=== PATIENT | female | born 1945 | race Caucasian/White ===

== ENCOUNTER → 2017-03-31 | Outpatient (CLI) | payer BC ==
[~2017-03-31] MED LIST: AMLODIPINE10 MG PO; ASPIRIN 81M81 MG/TA2 PO; ATIVAN0.5 MG PO; CALCIUM; CARDI-OMEGA1000 MG PO; DESYREL 50MG50 MG PO; KLOR-CON 1010 MEQ; LEXAPRO 10MG10 MG PO; LIPITOR40 MG PO; METAMUCIL0.52 GM PO; MULTIPLE VITAMI1 CAP PO; NATURE'S BLE1000 MCG PO; NORVASC2.5 MG PO; PRINIVIL10 MG PO; PRINZIDE 12.5 M1 TA1 PO; STOOL SOFTENER100 M2 PO; SYNTHROID0.05 MG/TA PO; TYLENOL EXTRA500 M1 PO; ULTRAM 50MG TAB50 MG PO
== END ==
LOC: MC.RAD 16:36
DX: Z12.31 Encounter for screening mammogram for malignant neoplasm of breast (principal)

== ENCOUNTER → 2018-04-14 | Outpatient (CLI) | payer MEDICARE, OTHER | LOC: MC.RAD 10:29 | DX: Z12.31 Encounter for screening mammogram for malignant neoplasm of breast (principal) ==

== ENCOUNTER → 2019-04-18 | Outpatient (CLI) | payer MEDICARE, OTHER | LOC: MC.RAD 13:08 | DX: Z12.31 Encounter for screening mammogram for malignant neoplasm of breast (principal) ==

== ENCOUNTER → 2020-04-19 | Outpatient (CLI) | payer MEDICARE | LOC: MC.RAD 10:27 | DX: Z12.31 Encounter for screening mammogram for malignant neoplasm of breast (principal) ==

== ENCOUNTER → 2021-05-03 | Outpatient (CLI) | payer MEDICARE | LOC: MC.RAD 10:43 | DX: Z12.31 Encounter for screening mammogram for malignant neoplasm of breast (principal) ==

== ENCOUNTER 2021-11-29 07:33 | Emergency (ER) | payer MEDICARE ==
[~2021-11-29] VITALS: Ht 170.2 cm; Wt 72.7 kg
[2021-11-29 07:41] VITALS: BP 152/72; TEMP 97.8
[2021-11-29 08:12] VITALS: PULSE 78
== END 2021-11-29 08:14 | disposition home or self-care (01) ==
LOC: COL.ER 07:33
DX: S93.402A Sprain of unspecified ligament of left ankle, initial encounter (principal); X50.1XXA Overexertion from prolonged static or awkward postures, initial encounter; Y93.01 Activity, walking, marching and hiking

== ENCOUNTER → 2023-05-14 | Outpatient (CLI) | payer MEDICARE | LOC: MC.RAD 09:45 | DX: Z12.31 Encounter for screening mammogram for malignant neoplasm of breast (principal) ==